=== PATIENT | male | born 1935 | race Caucasian/White ===

== ENCOUNTER 2016-07-08 08:11 | Emergency (ER) | payer MEDICARE ==
[2016-07-08] MEDS ORDERED: Phenylephrine 1% NASAL* 15 ML BOT ONE (09:54)
[2016-07-08] MEDS ORDERED: Silver Nitrate/Potassium Nitr* 1 EA STICK ONE (10:19)
--- NOTE | 2016-07-08 10:44 | UC ---
Epistaxis Nasal HPI - HPI Summary HPI Summary: He has hx of epistaxis which was worse that this in the past. This started yesterday with some oozing. No pain. no recent uri. He is on coumadin for afib and denies heart valve surgery or artificial valve. He sees Dr. Whitfield. He denies bleeding from other locations such as urine or stool. - History of Current Complaint Chief Complaint: UCHeadInjury Stated Complaint: BLOODY NOSE Time Seen by Provider: 07/08/16 09:37 Hx Obtained From: Patient Onset/Duration: Gradual Onset Timing: Minutes Severity Initially: Mild Severity Currently: Moderate Character: Light Aggravating Factor(s): Nothing Alleviating Factor(s): Pressure Associated Signs And Symptoms: Negative: Sinus Pain, Nasal Discharge, Recent Abnormal Coagulation Studies - Most recent INR in [employer] is 2.8, Foreign Body Related Hx: Anticoagulants - Allergies/Home Medications Allergies/Adverse Reactions: Allergies Allergy/AdvReac Type Severity Reaction Status Date / Time Sulfa Antibiotics Allergy Severe Hives Verified 07/08/16 08:24 PMH/Surg Hx/FS Hx/Imm Hx Endocrine History Of: Reports: Thyroid Disease Denies: Diabetes Cardiovascular History Of: Reports: Cardiac Disorders - stent, Hypertension - CONTROL WITH MED, Congestive Heart Failure, Atrial Fibrillation Denies: Myocardial Infarction Respiratory History Of: Denies: COPD, Asthma GI/ History Of: Denies: Gastroesophageal Reflux, Ulcer, Gastrointestinal Bleed, Gall Bladder Disease, Kidney Stones, Diverticulitis, Renal Disease, Urosepsis Neurological History Of: Denies: TIA, CVA, Dementia, Seizures, Migraine Psychological History Of: Denies: Anxiety, Depression, Bipolar Disorder, Schizophrenia, Post Traumatic Stress Disorder Cancer History Of: Denies: Lung Cancer, Colorectal Cancer, Breast Cancer, Prostate Cancer, Cervical Cancer Other History Of: Anticoagulant Therapy - coumadin Negative For: HIV, Hepatitis B, Hepatitis C - Surgical History Surgical History: Yes Surgery Procedure, Year, and Place: 2012 RIGHT TOTAL HIP REPLACEMENT, [place]. 2012 BILAT CATARACTS EXTRACTION WITH IOL IMPLANTS, [facility]. 2010 [place]AC [place], [place]. [place] [facility] [place] [facility] [place] - Family History Known Family History: Positive: None - reviewed & noncontributory Negative: Cardiac Disease, Hypertension, Renal Disease, Blood Disorder - Social History Lives: Alone - He lives alone but has a son that lives close by and checks on him. Alcohol Use: None Substance Use Type: None Smoking Status (MU): Never Smoked Tobacco - Immunization History Most Recent Influenza Vaccination: [id number] Most Recent Tetanus Shot: unknown Most Recent Pneumonia Vaccination: 3 years prior Review of Systems Neurovascular: Negative Neurological: Negative, Other - No weakness or dizziness. All Other Systems Reviewed And Are Negative: Yes Physical Exam Triage Information Reviewed: Yes Appearance: Well-Appearing - Older gentleman who is pleasant and alert. he is jovial and cracking jokes. He has pill rolling tremor and mild shuffling gain., No Pain Distress, Well-Nourished Vital Signs: Initial Vital Signs Temp 97.5 F 07/08/16 08:17 Pulse 72 07/08/16 08:17 Resp 20 07/08/16 08:17 BP 118/63 07/08/16 08:17 Pulse Ox 100 07/08/16 08:17 Vital Signs Reviewed: Yes Eyes: Positive: Conjunctiva Clear. Negative: Conjunctiva Inflamed ENT: Positive: Pharynx normal, Nasal congestion - Mild oozing blood from L nare. no posterior bleeding., TMs normal. Negative: Pharyngeal erythema, Tonsillar swelling, Tonsillar exudate, Trismus Neck exam: Normal Neck: Positive: Supple, Nontender, No Lymphadenopathy. Negative: Nuchal Rigidity Respiratory Exam: Normal Respiratory: Positive: Chest non-tender, Lungs clear, Normal breath sounds, No respiratory distress, No accessory muscle use Cardiovascular Exam: Normal Cardiovascular: Positive: No Murmur, Pulses Normal, Brisk Capillary Refill Abdominal Exam: Normal Abdomen Description: Positive: Nontender, No Organomegaly, Soft Musculoskeletal: Positive: Strength Intact, ROM Intact, No Edema Neurological: Positive: Alert, Muscle Tone Normal. Negative: Fatigued, Lethargic, Unresponsive Psychological Exam: Normal Skin Exam: Normal Skin: Negative: rashes Procedures - Procedure Summary Procedure Summary: Left nare epistaxis. Nare was cleared of blood and small clot with saline flush. Area of oozing was clearly identified left anterior kisselbach's plexus and no posterior bleeding noted. Neosynephrine was applied along with silver nitrate cautery. Oozing was significantly reduced. Anterior packing with neosynephrine soaked rhinorocket achieved complete hemostasis. No complications. Pt was observed for 20 min and bleeding did not resume. Epistaxis Nasal Course/Dx - Course Course Of Treatment: epistaxis left with INR 1.5+. We will have him hold coumadin for two days and f/u with Dr. Whitfield on Monday. We will remove packing Two days from now and start patient on augmentin. Abx ointment applied prior to packing being placed. He will call 911 should bleeding resume. - Differential Dx/Diagnosis Differential Diagnosis/HQI/PQRI: Allergic Rhinitis, Epistaxis Provider Diagnoses: Left epistaxis. complicated by coumadin. Anterior epistaxis. Anterior packing. Discharge - Discharge Plan Condition: Good Disposition: HOME Prescriptions: Amoxicillin/Clavulanate TAB* [Augmentin TAB 875*] 875 mg PO BID #6 tab Referrals: Maximo Davis MD [Primary Care Provider] - Abdifatah Masters MD [Medical Doctor] - 3 Days
[2016-07-08 10:51] VITALS: BP 122/61
== END 2016-07-08 11:52 | disposition home or self-care (01) ==
LOC: UCCORT 08:11
DX: R04.0 Epistaxis (principal); D68.32 Hemorrhagic disorder due to extrinsic circulating anticoagulants; T45.515A Adverse effect of anticoagulants, initial encounter; Y92.9 Unspecified place or not applicable; E07.9 Disorder of thyroid, unspecified; I10 Essential (primary) hypertension; I48.91 Unspecified atrial fibrillation; Z79.01 Long term (current) use of anticoagulants; Z95.5 Presence of coronary angioplasty implant and graft; Z96.641 Presence of right artificial hip joint; Z98.42 Cataract extraction status, left eye; Z98.41 Cataract extraction status, right eye; Z96.1 Presence of intraocular lens; Z88.2 Allergy status to sulfonamides
CPT/HCPCS: 30901; 99212; A9270-GY; G0463

== ENCOUNTER 2016-07-10 09:49 | Emergency (ER) | payer MEDICARE ==
[2016-07-10 10:52] VITALS: BP 119/63
--- NOTE | 2016-07-10 11:23 | UC ---
Epistaxis Nasal HPI - HPI Summary HPI Summary: Pt returns from 07/08/16 visit to have nasal tampon removed. Has A fib and had nose bleed . On blood thinners but no in 3 days [ End ] - History of Current Complaint Chief Complaint: UCRespiratory Stated Complaint: NOSE PLUG REMOVAL Time Seen by Provider: 07/10/16 11:15 Hx Obtained From: Patient Alleviating Factor(s): Pressure Associated Signs And Symptoms: Positive: Negative - Allergies/Home Medications Allergies/Adverse Reactions: Allergies Allergy/AdvReac Type Severity Reaction Status Date / Time Sulfa Antibiotics Allergy Severe Hives Verified 07/10/16 10:53 PMH/Surg Hx/FS Hx/Imm Hx Previously Healthy: Yes Endocrine History Of: Reports: Thyroid Disease Denies: Diabetes Cardiovascular History Of: Reports: Cardiac Disorders - stent, Hypertension - CONTROL WITH MED, Congestive Heart Failure, Atrial Fibrillation Denies: Myocardial Infarction Respiratory History Of: Denies: COPD, Asthma GI/ History Of: Denies: Gastroesophageal Reflux, Ulcer, Gastrointestinal Bleed, Gall Bladder Disease, Kidney Stones, Diverticulitis, Renal Disease, Urosepsis Neurological History Of: Denies: TIA, CVA, Dementia, Seizures, Migraine Psychological History Of: Denies: Anxiety, Depression, Bipolar Disorder, Schizophrenia, Post Traumatic Stress Disorder Cancer History Of: Denies: Lung Cancer, Colorectal Cancer, Breast Cancer, Prostate Cancer, Cervical Cancer Other History Of: Anticoagulant Therapy - coumadin Negative For: HIV, Hepatitis B, Hepatitis C - Surgical History Surgical History: Yes Surgery Procedure, Year, and Place: 2012 RIGHT TOTAL HIP REPLACEMENT, [place]. 2012 BILAT CATARACTS EXTRACTION WITH [place] IMPLANTS, [place]. [address] 02/2015 [place], [facility] [place]. [place] 08/03/15 at [facility] [place] - Family History Known Family History: Positive: None - reviewed & noncontributory Negative: Cardiac Disease, Hypertension, Renal Disease, Blood Disorder - Social History Occupation: Retired Lives: Alone Alcohol Use: None Substance Use Type: None Smoking Status (MU): Never Smoked Tobacco - Immunization History Most Recent Influenza Vaccination: 9958-2411 Most Recent Tetanus Shot: unknown Most Recent Pneumonia Vaccination: 3 years prior Review of Systems Constitutional: Negative Skin: Negative Eyes: Negative ENT: Epistaxis Respiratory: Negative Cardiovascular: Negative Gastrointestinal: Negative Genitourinary: Negative Motor: Negative Neurovascular: Negative Musculoskeletal: Negative Neurological: Negative Psychological: Negative All Other Systems Reviewed And Are Negative: Yes Physical Exam Triage Information Reviewed: Yes Appearance: Well-Appearing, No Pain Distress, Well-Nourished Vital Signs: Initial Vital Signs Temp 98.2 F 07/10/16 10:37 Pulse 48 07/10/16 10:37 Resp 20 07/10/16 10:37 BP 119/63 07/10/16 10:37 Pulse Ox 99 07/10/16 10:37 Vital Signs Reviewed: Yes Eye Exam: Normal ENT Exam: Normal ENT: Positive: Other: - left nostril with rhino rocket present -= removed without difficulty no active bleeding Dental Exam: Normal Neck exam: Normal Neck: Positive: 1 Respiratory Exam: Normal Cardiovascular Exam: Normal Cardiovascular: Positive: RRR, Murmur:Sys:Grade _?_/ - 3 Musculoskeletal Exam: Normal Neurological Exam: Normal Psychological Exam: Normal Skin Exam: Normal Epistaxis Nasal Course/Dx - Differential Dx/Diagnosis Differential Diagnosis/HQI/PQRI: Epistaxis Provider Diagnoses: Epistaxis -- resolved and rhino rocket removed Discharge - Discharge Plan Condition: Good Disposition: HOME Patient Education Materials: Nosebleed (ED)
== END 2016-07-10 11:31 | disposition home or self-care (01) ==
LOC: UCCORT 09:49
DX: R04.0 Epistaxis (principal); I48.91 Unspecified atrial fibrillation; Z79.01 Long term (current) use of anticoagulants; I50.9 Heart failure, unspecified; I10 Essential (primary) hypertension; Z88.2 Allergy status to sulfonamides; Z96.641 Presence of right artificial hip joint; Z98.42 Cataract extraction status, left eye; Z98.41 Cataract extraction status, right eye; Z96.1 Presence of intraocular lens; Z95.5 Presence of coronary angioplasty implant and graft
CPT/HCPCS: 99212; G0463

== ENCOUNTER 2018-07-08 07:35 | Emergency (ER) | payer MEDICARE ==
[2018-07-08 07:52] VITALS: BP 143/79
--- NOTE | 2018-07-08 08:15 | UC ---
Hand/Wrist HPI - HPI Summary HPI Summary: Pt presents with c/o sudden onset of right hand pain, swelling, erythema that he woke with this morning. Denies any trauma to hand. Pt is accompanied by son. Denies hx of gout. - History Of Current Complaint Chief Complaint: UCUpperExtremity Stated Complaint: RT HAND COMPLAINT Time Seen by Provider: 07/08/18 08:04 Hx Obtained From: Patient ?: No Onset/Duration: Sudden Onset, Lasting Hours, Still Present Severity Initially: Severe Severity Currently: Severe Pain Intensity: 10 Character Of Pain: Dull, Aching, Stiffness, Burning Aggravating Factor(s): Movement Alleviating Factor(s): Nothing Associated Signs And Symptoms: Positive: Swelling, Redness, Weakness Related History: Dominant Hand Right - Risk Factors Compartment Syndrome Risk Factors: Pain - Allergies/Home Medications Allergies/Adverse Reactions: Allergies Allergy/AdvReac Type Severity Reaction Status Date / Time Sulfa (Sulfonamide Allergy Hives Verified 07/08/18 07:48 Antibiotics) Home Medications: Home Medications Prescription Diuretic 1 dose PO BID 07/08/18 [History Confirmed 07/08/18] PMH/Surg Hx/FS Hx/Imm Hx Previously Healthy: No Cardiovascular History: Cardiac Disease, Hypertension Other History Of: Anticoagulant Therapy - coumadin Negative For: HIV, Hepatitis B, Hepatitis C - Surgical History Surgical History: Yes Surgery Procedure, Year, and Place: 2012 RIGHT TOTAL HIP REPLACEMENT, [place]. 2012 BILAT CATARACTS EXTRACTION WITH [place]OL IMPLANTS, [place]. 2010 CARDIAC STENT X1, [place]. 02/2015 [facility], [facility] [place]. [place]/03[place]15 [place] [facility] [place] - Family History Known Family History: Positive: None - reviewed & noncontributory Negative: Cardiac Disease, Hypertension, Renal Disease, Blood Disorder - Social History Occupation: Retired Lives: With Family Alcohol Use: None Substance Use Type: None Smoking Status (MU): Never Smoked Tobacco Have You Smoked in the Last Year: No - Immunization History Most Recent Influenza Vaccination: [id number] Most Recent Tetanus Shot: unknown Most Recent Pneumonia Vaccination: 3 years prior Vaccination Up to Date: No Review of Systems All Other Systems Reviewed And Are Negative: Yes Constitutional: Positive: Negative Skin: Positive: Other - erythema Eyes: Positive: Negative ENT: Positive: Negative Respiratory: Positive: Negative Cardiovascular: Positive: Negative Gastrointestinal: Positive: Negative Genitourinary: Positive: Negative Motor: Positive: Decreased ROM Neurovascular: Positive: Negative Musculoskeletal: Positive: Arthralgia, Decreased ROM, Edema, Myalgia Neurological: Positive: Negative Psychological: Positive: Negative Is Patient Immunocompromised?: No Physical Exam Triage Information Reviewed: Yes Appearance: Pain Distress, Thin Vital Signs: Initial Vital Signs Temp 98.3 F 07/08/18 07:45 Pulse 88 07/08/18 07:45 Resp 18 07/08/18 07:45 BP 143/79 07/08/18 07:45 Pulse Ox 99 07/08/18 07:45 Vital Signs Reviewed: Yes Eye Exam: Normal ENT Exam: Normal ENT: Positive: Hearing grossly normal Neck exam: Normal Neck: Positive: Supple Respiratory: Positive: No respiratory distress Cardiovascular: Positive: Other: - regularly irregular Musculoskeletal: Positive: Strength Limited @ - right second -4 finger, mild erythema edema, warmth greater than left hand, c/o tenderness with palpation., ROM Limited @, Edema @ Neurological Exam: Normal - at baseline Psychological Exam: Normal Skin Exam: Other - erythema to right hand, increased redness at right second finger metocarpal phalngeal joint. Hand/Wrist Course/Dx - Differential Dx/Diagnosis Differential Diagnosis/HQI/PQRI: Bursitis, Carpal Tunnel Syndrome, Cellulitis, Gout Provider Diagnosis: Gout Discharge - Sign-Out/Discharge Documenting (check all that apply): Patient Departure All imaging exams completed and their final reports reviewed: No Studies - Discharge Plan Condition: Stable Disposition: HOME Prescriptions: Colchicine* [Colcrys*] 0.6 mg PO DAILY #3 tab predniSONE TAB* [Deltasone 20 MG TAB*] 20 mg PO DAILY #4 tab Patient Education Materials: Low Purine Diet (ED), Gout (ED) Referrals: Maximo Davis MD [Primary Care Provider] - 1 Day - Billing Disposition and Condition Condition: STABLE Disposition: Home - Attestation Statements Provider Attestation: Per institutional requirements, I have reviewed the chart, however, I was not consulted specifically or made aware of this patient by the midlevel provider. I did not personally evaluate, interact with , or disposition this patient.
== END 2018-07-08 08:27 | disposition home or self-care (01) ==
LOC: UCCORT 07:35
DX: M10.9 Gout, unspecified (principal); I10 Essential (primary) hypertension; R53.1 Weakness; Z88.2 Allergy status to sulfonamides
CPT/HCPCS: 99212; G0463

== ENCOUNTER 2018-12-24 07:10 | Observation (INO) | payer MEDICARE ==
[~2018-12-24 07:10] MED LIST: Buffered Lidocaine 1% SYRIN* 1 ML/SYRINGE INTRADERM ONE; Lactated Ringers 1000 ML Bag* 1,000 ML IV SCH
[2018-12-24] MEDS ORDERED: ceFAZolin 2 GM in NS PREMIX(*) 2 GM/100 ML BAG IVPB ONE (07:55)
[2018-12-24] MEDS ORDERED: Bupivacaine 0.25% SDV PF* 10 ML VIAL INJ ONE (08:47)
[2018-12-24] MEDS ORDERED: fentaNYL* 50 MCG/ML 2 ML VIAL (100 MCG VIAL) ONE (09:02)
[2018-12-24] MEDS ORDERED: Lidocaine 2% PF * 5 ML VIAL ONE (09:14)
[2018-12-24] MEDS ORDERED: Ondansetron INJ* 2 MG/ML VIAL ONE (09:14)
[2018-12-24] MEDS ORDERED: Dexamethasone IV* 4 MG/ML 1 ML (4 MG) ONE (09:14)
[2018-12-24] MEDS ORDERED: Propofol* 10 MG/ML 20 ML BTL ONE (09:14)
[2018-12-24] MEDS ORDERED: EPHEDrine (Pressors)* 50 MG/ML VIAL ONE (09:23)
[2018-12-24] MEDS ORDERED: Sevoflurane* BOTTLE ONE (10:44)
[2018-12-24] MEDS ORDERED: Naloxone* 0.4 MG/ML 1 ML VIAL IV PRN (12:07)
[2018-12-24] MEDS ORDERED: traMADol TAB* 50 MG PO PRN (15:50)
[2018-12-24] MEDS ORDERED: Ondansetron ODT TAB* 4 MG PO PRN (15:50)
[2018-12-24] MEDS ORDERED: diPHENhydraMINE IV* 50 MG/ML 1 ml VIAL (BENADRYL) IV PRN (15:50)
[2018-12-24] MEDS ORDERED: Cyclobenzaprine TAB* 10 MG PO PRN (15:50)
[2018-12-24] MEDS ORDERED: diPHENhydraMINE PO* 25 MG PO PRN (15:50)
[2018-12-24] MEDS ORDERED: Magnesium Hydroxide LIQ* 30 ML UDC PO PRN (15:50)
[2018-12-24] MEDS ORDERED: Ondansetron INJ* 2 MG/ML VIAL IV PRN (15:50)
[2018-12-24] MEDS ORDERED: Lactated Ringers 1000 ML Bag* 1,000 ML IV SCH (16:00)
[2018-12-24] MEDS ORDERED: Simvastatin TAB(NF) 20 MG TAB PO SCH (18:00)
[2018-12-24] MEDS: Cholecalciferol TAB* 1000 UNITS PO SCH (18:30)
[2018-12-24] MEDS: Atorvastatin* 10 MG TAB PO SCH (18:44)
[2018-12-24] MEDS ORDERED: Primidone TAB(*) 50 MG PO SCH (19:00)
[2018-12-24] MEDS: Ferrous Gluconate TAB* 324 MG TAB PO SCH (21:11)
[2018-12-24] MEDS: Docusate CAP* 100 MG PO SCH (21:11)
[2018-12-24] MEDS: Magnesium Hydroxide LIQ* 30 ML UDC PO SCH (21:11)
[2018-12-24] MEDS: Topiramate TAB(*) 25 MG PO SCH (22:01)
[2018-12-24] MEDS: Acetaminophen TAB* 325 MG PO SCH (22:01)
--- NOTE | 2018-12-24 23:01 | OP ---
DATE OF OPERATION: 12/24/18 - ROOM #337 DATE OF : 36 SURGEON: Michael Perdomo MD LOCK UP WORKER: LEONOR Maurer. An enrichment assistant was needed for the entirety of the procedure to aid in positioning of the arm and retraction. ANESTHESIOLOGIST: Dr. Graham. ANESTHESIA: General. PRE-OP DIAGNOSES: 1. Left carpal tunnel syndrome. 2. 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 3. Left cubital tunnel syndrome. POST-OP DIAGNOSES: 1. Left carpal tunnel syndrome. 2. 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 3. Left cubital tunnel syndrome. OPERATIVE PROCEDURE: 1. Left in situ cubital tunnel release. 2. Left carpal tunnel release. 3. Radical left wrist and distal forearm flexor tenosynovectomy. 4. Excision of hook of hamate, left wrist. INDICATIONS: Jasson has chronic flexor tenosynovitis that is quite abundant. He carries no rheumatologic diagnosis. He has neurological symptoms as well. He certainly has general neurological condition, but also he is having localized neurological symptoms to the left hand and arm as well as some slightly uncomfortable tenosynovitis. I talked about his options. He elected to proceed with surgery. He understands the risks associated with this. ESTIMATED BLOOD LOSS: 5 mL. COMPLICATIONS: None. FINDINGS: See above and below. DESCRIPTION OF PROCEDURE: Jasson was seen in the preoperative holding area. The correct site, side, and procedures were identified. We came back to the operating room where the arm was prepped and draped in the usual fashion and a time-out was performed. The arm was exsanguinated with the Esmarch and the tourniquet was inflated to 250 mmHg. I began by making a 3 to 4 cm incision centered over the cubital tunnel. The arm was in the abducted and externally rotated position. Dissection was carried down. I first started the decompression just distal to the Bellamy's ligament. It was carried down. I split the FCU fascia, the 2 heads of the FCU and then the subfascial layer. I then released the Bellamy's ligament. I then came proximally and released the fascia overlying the ulnar nerve all the way up past the arcade of [place]. It looked like it was compressed just at the proximal aspect of the FCU and the distal aspect of Bellamy's ligament. Once I had completed a full decompression, there was no instability of the nerve, so I irrigated out the wound. Hemostasis was obtained with a Bovie. I reapproximated the subcutaneous tissue with 3-0 Vicryl and the skin was closed with 3-0 Monocryl and Steri-Strips. Next, I made an extensile carpal tunnel incision. This was brought across the wrist in Nishi-type fashion over the ulnar aspect of the wrist and extended good 7 or 8 cm up the forearm just off the ulnar aspect of the palmaris longus tendon. Dissection was carried down. I released the transverse carpal ligament just off the radial aspect of the hook of the hamate. The release was carried out all the way up through the area of tenosynovitis and all the way distal as well. I performed a full carpal tunnel release. The median nerve was dissected free from the tenosynovitis and retracted radially. There was quite a bit of tenosynovitis. I went ahead and excised it all. I stripped the tendons clean. This took quite some time. I used the scissors and the most ulnar tendons out to the small finger and the ring finger were very frayed as they came around the hook of the hamate. They looked like they were on their way to rupture. I cleaned those tendons up. Once I had the tendons completely stripped off all the tenosynovitis, I sent the tenosynovitis off for permanent specimen as well as aerobic and anaerobic cultures, fungal cultures, and mycobacterial cultures. Lastly, I thought that the tendons were at risk for rupture and so I went ahead and released the soft tissue all around the hook of the hamate. A rongeur was then used to excise the hook of the hamate in its entirety. I cleaned it up at the base of the wound to make sure there were no rough edges. Once I had everything nice and smooth, I placed bone wax on the cancellous bed. At this point, everything was looking very good, everything was nicely decompressed, all the tenosynovitis was gone. I irrigated out the wound. Skin was closed with 4-0 nylon suture. He was placed in a long arm splint with a lateral buttress. The fingers were left free, so he could flex and extend the fingers and the thumb. He was taken to the recovery room in stable condition. [id number]/[facility] #: [id number] [place]
--- NOTE | 2018-12-25 02:40 | CONS ---
CONSULTATION REPORT: DATE OF CONSULT: 12/24/18 PROVIDER: Shantel Giron NP, Hospital Medicine. ATTENDING PHYSICIAN: Dr. Perdomo. CONSULTING PHYSICIAN: Dr. Lu Song (dictated by Shantel Giron NP). REASON FOR CONSULT: Comanagement of chronic medical conditions. HISTORY OF PRESENT ILLNESS: Mr. Damon is an 83-year-old male with a past medical history significant for coronary artery disease; history of PE; paroxysmal atrial fibrillation, unable to tolerate Coumadin due to severe nose bleeds, arthritis; GERD; mitral valve prolapse; hyperlipidemia and tremors who presented to the emergency room for an elective carpal tunnel release to the left wrist by Dr. Perdomo. Please see dictated H and P from Dr. Perdomo for complete details. In brief, the patient had ongoing pain, failed conservative measures; therefore, opted for an elective left wrist carpal tunnel release and flexor tenosynovectomy, elbow ulnar nerve decompression, and possible transposition. In the postoperative period, the patient has no complaints. Hospital Medicine was asked to consult to help comanage the patient's chronic medical conditions. PAST MEDICAL HISTORY: Significant for: 1. Coronary artery disease. 2. History of pulmonary embolism. 3. History of paroxysmal atrial fibrillation, not on anticoagulation as the patient had severe nose bleeds with Coumadin. 4. Arthritis. 5. GERD. 6. Mitral valve prolapse. 7. Hyperlipidemia. 8. Tremor. PAST SURGICAL HISTORY: 1. Hip replacement. 2. Cataracts. 3. Stents. 4. Tonsillectomy. HOME MEDICATIONS: Include: 1. Aspirin 81 mg p.o. daily. 2. Ferrous gluconate 324 mg p.o. t.i.d. 3. Lasix 40 mg p.o. b.i.d. 4. Primidone 25 mg p.o. at h.s. 5. Topiramate 50 mg p.o. b.i.d. 6. Synthroid 125 mcg p.o. daily. 7. Vitamin D. 8. Vitamin C. 9. Vitamin D3. 10. Zocor 20 mg p.o. daily. ALLERGIES: SULFA. FAMILY HISTORY: No reported history of coronary artery disease or diabetes. Father with colon cancer. SOCIAL HISTORY: Denies any tobacco, alcohol, or illicit drug use. He lives alone in a bottom apartment where his daughter lives above him. He walks with a walker. Surrogate decision maker in the event he is unable to make his own decision is his son or [id number]. He is a full code. REVIEW OF SYSTEMS: The patient denies any fever, chills, or unintended weight loss. Denies any chest pain or edema. Denies any cough, hemoptysis, or shortness of breath. No nausea, vomiting, diarrhea, abdominal pain, hematuria, or dysuria. Denies any focal weakness or sensory loss. Denies any visual complaints, arthralgias, myalgias, rashes, lesions, or open sores. The patient did complain of left wrist pain. PHYSICAL EXAM: General: At this time, Mr. Damon is alert and oriented, resting on the stretcher in PACU. He is in no acute distress. Vital Signs: Blood pressure 113/84, heart rate 88, respirations 16, O2 saturation 97%, temperature was 98.0. HEENT: Head is atraumatic and normocephalic. Eyes: EOMs are intact. Sclerae anicteric and not pale. Oral mucosa appears to be moist. Neck is supple. Lungs are clear to auscultation bilaterally. No wheezes , rales, or rhonchi. Cardiac: S1 and S2. Irregular rate and rhythm. No murmurs, rubs, or gallops. Abdomen is soft and nontender. Bowel sounds are present x4. Extremities: He is able to move all 4 extremities. He does have a splint intact to his left arm above his elbow. Sensation is intact to his hands. He is able to move all his fingers on the left hand. Neurologic: He is awake, alert, and oriented x3. Speech is clear. Thought process is intact. There is no gross focal deficit. DIAGNOSTIC STUDIES/LAB DATA: The patient has no recent lab work. ASSESSMENT AND PLAN: Mr. Damon is an 83-year-old male with a past medical history significant for coronary artery disease, history of pulmonary embolism, paroxysmal atrial fibrillation, arthritis, gastroesophageal reflux disease, mitral valve prolapse, hyperlipidemia, and tremors who presented to [facility] [place] for an elective carpal tunnel release to the left wrist with Dr. Perdomo. [facility] Medicine was asked to consult due to his past medical history. Our recommendations are as follows: 1. Status post carpal tunnel release. Management per Orthopedics. PT/OT per Orthopedics. Bowel regimen per orthopedics. Pain management per Orthopedics. 2. History of paroxysmal atrial fibrillation. The patient recently had his amiodarone discontinued. He is currently not on any rate control. His rate is currently controlled with oral medication. According to preop clearance from Collin Gunderson MD, the patient has an intolerance to anticoagulation in the past due to severe nose bleeds and Dr. Gunderson has recommended that he can have oral anticoagulation for short term, but it was not recommended for long goods drier and that he is considering the Watchman Device at this time. 3. Tremors. He should continue on Primidone 25 mg p.o. daily. 4. Hypothyroid. He should continue on the Synthroid 125 mcg p.o. daily. 5. Hyperlipidemia. He should continue on Zocor 20 mg p.o. daily. 6. FEN. He can have a regular diet. 7. Code status. He is a full code. 8. DVT prophylaxis. As per Orthopedics. TIME SPENT: Time spent on this consultation was approximately 45 minutes, greater than half that time was spent at the bedside reviewing the events leading thus far to his hospitalization, performing physical exam, and reviewing my plan of care. Next, I have discussed with my attending Dr. Lu Song, she is in agreement with my plan. SHANTEL GIRON NP [id number]/[facility] #: [id number] [place]
[2018-12-25] MEDS: Levothyroxine TAB* 125 MCG TAB PO SCH (06:06)
[2018-12-25] MEDS: Acetaminophen TAB* 325 MG PO SCH ×3 (06:06→23:03)
[2018-12-25] MEDS ORDERED: Furosemide TAB* 40 MG PO SCH (09:00)
[2018-12-25] MEDS: Cyanocobalamin TAB* 500 MCG PO SCH (09:43)
[2018-12-25] MEDS: Vitamin THERAPEUTIC TAB PO SCH (09:43)
[2018-12-25] MEDS: Docusate CAP* 100 MG PO SCH ×2 (09:43→23:07)
[2018-12-25] MEDS: Topiramate TAB(*) 25 MG PO SCH ×2 (09:43→23:07)
[2018-12-25] MEDS: Ferrous Gluconate TAB* 324 MG TAB PO SCH ×3 (09:43→23:04)
[2018-12-25] MEDS: Ascorbic Acid TAB* 500 MG PO SCH (09:43)
[2018-12-25] MEDS: Aspirin EC TAB* 81 MG TAB.EC PO SCH (09:44)
[2018-12-25] MEDS: Magnesium Hydroxide LIQ* 30 ML UDC PO SCH ×2 (09:44→23:11)
--- NOTE | 2018-12-25 13:42 | PN ---
Progress Note - Progress Note Date of Service: 12/25/18 SOAP: Subjective: []Pt seen and examined at bedside. He is comfortable without complaints. Denies CP, SOB, dizziness, nausea. LUE pain is well controlled Objective: []Gen: Appears well, NAD, sitting up in bed eating breakfast LUE: Splint in place, CDI. Able to f/e at all MTPs, sensation intact to light touch throughout exposed portion of extremity, cap refill less than two seconds distally Assessment: []POD 1 sp 1. Left in situ cubital tunnel release. 2. Left carpal tunnel release. 3. Radical left wrist and distal forearm flexor tenosynovectomy. 4. Excision of hook of hamate, left wrist. Plan: []Keep splint CDI Okay for use of platform walker Will need rehab, PMRU unable to offer a bed Vital Signs Temp 98.1 F 12/25/18 11:24 Pulse 66 12/25/18 11:24 Resp 16 12/25/18 11:24 BP 93/57 12/25/18 11:24 Pulse Ox 100 12/25/18 11:24 Intake & Output 12/24/18 12/25/18 12/25/18 18:59 06:59 18:59 Intake Total 1200 120 Output Total 750 450 300 Balance 450 -330 -300 Weight 163 lb Intake: IV Fluids 600 LR 500 NS 100ML, Cefazolin 2G 100 Oral 600 120 Output: Urine 750 450 300
[2018-12-25] MEDS: Cholecalciferol TAB* 1000 UNITS PO SCH (17:53)
[2018-12-25] MEDS: Atorvastatin* 10 MG TAB PO SCH (17:53)
[2018-12-25] MEDS: Primidone TAB(*) 50 MG PO SCH (23:09)
[2018-12-26] MEDS: Acetaminophen TAB* 325 MG PO SCH ×3 (05:28→21:54)
[2018-12-26] MEDS: Levothyroxine TAB* 125 MCG TAB PO SCH (05:28)
[2018-12-26] MEDS: Topiramate TAB(*) 25 MG PO SCH ×2 (09:48→21:54)
[2018-12-26] MEDS: Cyanocobalamin TAB* 500 MCG PO SCH (09:49)
[2018-12-26] MEDS: Docusate CAP* 100 MG PO SCH ×2 (09:50→23:19)
[2018-12-26] MEDS: Vitamin THERAPEUTIC TAB PO SCH (09:50)
[2018-12-26] MEDS: Ferrous Gluconate TAB* 324 MG TAB PO SCH ×3 (09:50→21:53)
[2018-12-26] MEDS: Ascorbic Acid TAB* 500 MG PO SCH (09:50)
[2018-12-26] MEDS: Aspirin EC TAB* 81 MG TAB.EC PO SCH (09:50)
[2018-12-26] MEDS: Magnesium Hydroxide LIQ* 30 ML UDC PO SCH ×2 (09:50→22:01)
--- NOTE | 2018-12-26 11:08 | PN ---
Progress Note - Progress Note Date of Service: 12/26/18 SOAP: Subjective: []Pt seen at bedside. He is comfortable without complaints. Denies CP, SOB, dizziness, nausea. Objective: []Gen: Appears well, NAD LUE: Splint in place, CDI. Able to f/e at all MTPs, sensation intact to light touch throughout exposed portion of extremity, cap refill less than two seconds distally Assessment: []POD 2 sp 1. Left in situ cubital tunnel release. 2. Left carpal tunnel release. 3. Radical left wrist and distal forearm flexor tenosynovectomy. 4. Excision of hook of hamate, left wrist. Plan: []Keep splint CDI Okay for use of platform walker Bed offer at [place], awaiting ins approval Vital Signs Temp 97.9 F 12/26/18 07:58 Pulse 69 12/26/18 07:58 Resp 16 12/26/18 07:58 BP 103/70 12/26/18 07:58 Pulse Ox 96 12/26/18 07:58 Intake & Output 12/25/18 12/26/18 12/26/18 18:59 06:59 18:59 Intake Total 300 240 320 Output Total 1050 850 Balance -750 -610 320 Intake: Oral 300 240 320 Output: Urine 1050 850
[2018-12-26] MEDS ORDERED: Bisacodyl SUPP* 10 MG SUPP PR PRN (15:51)
[2018-12-26] MEDS: Cholecalciferol TAB* 1000 UNITS PO SCH (17:47)
[2018-12-26] MEDS: Atorvastatin* 10 MG TAB PO SCH (17:48)
[2018-12-26] MEDS: Primidone TAB(*) 50 MG PO SCH (21:52)
[2018-12-27] MEDS: Levothyroxine TAB* 125 MCG TAB PO SCH (05:27)
[2018-12-27] MEDS: Acetaminophen TAB* 325 MG PO SCH (05:27)
[2018-12-27 07:42] VITALS: BP 100/61
[2018-12-27] MEDS: Cyanocobalamin TAB* 500 MCG PO SCH (07:47)
[2018-12-27] MEDS: Aspirin EC TAB* 81 MG TAB.EC PO SCH (07:47)
[2018-12-27] MEDS: Ascorbic Acid TAB* 500 MG PO SCH (07:47)
[2018-12-27] MEDS: Docusate CAP* 100 MG PO SCH (07:47)
[2018-12-27] MEDS: Ferrous Gluconate TAB* 324 MG TAB PO SCH (07:47)
[2018-12-27] MEDS: Topiramate TAB(*) 25 MG PO SCH (07:47)
[2018-12-27] MEDS: Vitamin THERAPEUTIC TAB PO SCH (07:47)
[2018-12-27] MEDS: Magnesium Hydroxide LIQ* 30 ML UDC PO SCH (07:48)
--- NOTE | 2018-12-27 09:29 | DS ---
Orthopedic Discharge Summary - Discharge Summary Date of Admission:12/24/18 Date of Discharge: 12/27/18 Date of Surgery: 12/24/18 Attending Orthopedic Provider: Dr Perdomo Pre-operative Diagnosis: [ 1. Left carpal tunnel syndrome. 2. 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 3. Left cubital tunnel syndrome. Operative Procedure: [ 1. Left in situ cubital tunnel release. 2. Left carpal tunnel release. 3. Radical left wrist and distal forearm flexor tenosynovectomy. 4. Excision of hook of hamate, left wrist.] [facility] Condition of Patient: stable History: MICHAEL WORRELL is a 83 year old M with 1. 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 Patient has failed conservative management and has elected to undergo a 1. Left in situ cubital tunnel release. 2. Left carpal tunnel release. 3. Radical left wrist and distal forearm flexor tenosynovectomy. 4. Excision of hook of hamate, left wrist.] Hospital Course: MICHAEL was admitted to [facility] on 12/24/18. Patient underwent a [1. Left in situ cubital tunnel release. 2. Left carpal tunnel release. 3. Radical left wrist and distal forearm flexor tenosynovectomy. 4. Excision of hook of hamate, left wrist.] without complication followed by a brief recovery in PACU and transfer to the Short Stay Surgical Unit in stable condition. Our hospitalist service, physical therapy and occupational therapy also participated in this patients care. Post- op day 1: patient was alert and in no acute distress. Dressing was clean, dry and intact. Operative extremity MCP f/e intact, thumbs up, okay, cross finger sign intact. sensation intact to light touch distally. Home Medications Medication Instructions Recorded Confirmed Type Aspirin EC TAB* [Ecotrin EC Low 81 mg PO QAM 06/30/15 12/24/18 History Dose 81 MG*] Simvastatin TAB(NF) [Zocor 20 MG 20 mg PO QPM 06/30/15 12/24/18 History (NF)] Ferrous Gluconate TAB* [Fergon 324 mg PO TID 07/28/15 12/24/18 History TAB*] Ascorbic Acid [Vitamin C] 1,000 mg PO QAM 12/04/18 12/24/18 History Cholecalciferol (Vitamin D3) 5,000 unit PO QPM 12/04/18 12/24/18 History [Vitamin D3] Cyanocobalamin (Vitamin B-12) 1,000 mcg SL QAM 12/04/18 12/24/18 History [Vitamin B-12] Furosemide [Lasix] 40 mg PO QAM 12/04/18 12/24/18 History Levothyroxine TAB* [Synthroid 125 125 mcg PO 0800 12/04/18 12/24/18 History MCG TAB*] Primidone 25 mg PO QPM 12/04/18 12/24/18 History Topiramate [Qudexy Xr] 150 mg PO BID 12/04/18 12/24/18 History Acetaminophen TAB* [Tylenol TAB*] 975 mg PO Q8HR tab 12/26/18 Rx Docusate CAP* [Colace Cap*] 100 mg PO BID cap 12/26/18 Rx Keep splint Clean dry and intact until follow up visit in 10-14 days Elevate operative extremity, ice, wiggle fingers to reduce swelling Okay for use of platform walker, do not bear full weight through operative hand and no heavy lifting left upper extremity. Call for questions or concerns, call for appt in 10-14 days [phone]
== END 2018-12-27 10:40 ==
LOC: OR 07:10 → SSU 17:02
PROVIDERS: ADMIT Orthopaedic Surgery Hand Surgery; ATTEND Orthopaedic Surgery Hand Surgery
DX: G56.02 Carpal tunnel syndrome, left upper limb (principal); G56.22 Lesion of ulnar nerve, left upper limb; M65.841 Other synovitis and tenosynovitis, right hand; M65.842 Other synovitis and tenosynovitis, left hand; G56.21 Lesion of ulnar nerve, right upper limb; G56.03 Carpal tunnel syndrome, bilateral upper limbs; M65.9 Synovitis and tenosynovitis, unspecified; E78.5 Hyperlipidemia, unspecified; R25.1 Tremor, unspecified; I25.10 Atherosclerotic heart disease of native coronary artery without angina pectoris; I48.0 Paroxysmal atrial fibrillation; K21.9 Gastro-esophageal reflux disease without esophagitis; M19.90 Unspecified osteoarthritis, unspecified site; I34.1 Nonrheumatic mitral (valve) prolapse; Z79.82 Long term (current) use of aspirin; Z79.899 Other long term (current) drug therapy; Z86.711 Personal history of pulmonary embolism; Z79.01 Long term (current) use of anticoagulants; Z88.2 Allergy status to sulfonamides
CPT/HCPCS: 87070; 87073; 87077; 87102; 87116; 87176; 87205; 87206; 88304; A9270-GY; G0378; G8978-GP-CJ; G8979-GP-CH; G8987-GO-CL; G8988-GO-CI; J0690; J1100; J2405; J2704; J3010; J3490